=== PATIENT | female | born 1985 | race Caucasian/White ===

== ENCOUNTER → 2023-10-29 | Outpatient (CLI) | payer OTHER ==
[2023-10-29 12:07] LABS: Appearance,Urine Clear (Clear); Color,Urine Yellow
[2023-10-29 12:08] LABS: Bilirubin,Urine Negative (Negative); Blood,Urine Small (Negative); Glucose,Urine (UA) Negative (Negative); Ketones,Urine Negative (Negative); Leukocyte Esterase,Urine Moderate (Negative); Nitrite,Urine Negative (Negative); Protein,Urine Negative (Negative); Urobilinogen,Urine 0.2 mg/dL (<2.0)
[2023-10-29 12:09] LABS: Bacteria,Urine Many /hpf; Mucus,Urine Rare /hpf; RBC,Urine 2 /hpf (0-5); Squamous Epithelial Cell,Urine 7 /hpf (0-4); WBC,Urine 2 /hpf (0-5)
[2023-10-29 15:55] LABS: Basophils # (A) 0.01 X 10*3/uL (0.00-0.10); Basophils % (A) 0.2 %; Eosinophils # (A) 0.02 X 10*3/uL (0.04-0.35); Eosinophils % (A) 0.4 %; HCT 40.4 % (37.2-46.3); HGB 13.1 g/dL (12.0-15.0); Immature Grans, Automated 0 %; Lymphocytes # (A) 1.58 X 10*3/uL (0.90-5.00); Lymphocytes % (A) 29.8 %; MCH 28.6 pg (27.0-32.0); MCHC 32.4 g/dL (32.0-37.0); MCV 88.2 FL (80.0-97.0); Mean Platelet Volume 10.8 FL (9.5-12.2); Monocytes # (A) 0.32 X 10*3/uL (0.20-1.00); NRBC Per 100 WBC 0 X 10*3/uL (0.00-0.01); Neutrophils # (A) 3.37 X 10*3/uL (1.80-7.70); Neutrophils % (A) 63.6 %; Platelet Count 251 X 10*3/uL (140-440); RBC 4.58 X 10*6/uL (4.10-5.20); RDW 13.1 % (11.5-14.5)
[2023-10-29 16:16] LABS: Erythrocyte Sedimentation Rate 16 mm/Hr (0-20)
[2023-10-29 17:37] LABS: DNA Double-Stranded Negative (Negative)
[2023-10-29 18:59] LABS: Creatine Kinase 49 U/L (26-186)
[2023-10-29 19:00] LABS: ALT 15 U/L (8-44); AST 15 U/L (13-35); Albumin 4.2 g/dL (3.8-4.9); Albumin/Globulin Ratio 1.62 Ratio (1.60-3.17); Alkaline Phosphatase 51 U/L (41-126); Blood Urea Nitrogen 18.2 mg/dL (9.0-27.0); Calcium 9.4 mg/dL (8.7-10.3); Carbon Dioxide 19.9 mmol/L (21.6-31.8); Chloride 106 mmol/L (96-109); Chol/HDL Ratio 3.38 Ratio; Globulin 2.6 g/dL (1.6-3.3); Glucose 97 mg/dL (70-110); LDL Cholesterol,Calculated 123.8 mg/dL (0.0-131.0); Magnesium 1.9 mg/dL (1.5-2.4); Potassium 4.3 mmol/L (3.5-5.5); Rheumatoid Factor, Qnt <15 IU/mL (0-15); Sodium 139 mmol/L (135-145); T4, Free (Free Thyroxine) 1.14 ng/dL (0.80-1.80); Total Bilirubin 0.4 mg/dL (0.3-1.2); Total Protein 6.8 g/dL (6.2-8.2); VLDL Calculation 18.44 mg/dL (5.00-40.00)
== END | disposition home or self-care (01) ==
LOC: LABWHC1 09:15
PROVIDERS: ATTEND Family Medicine
DX: M35.3 Polymyalgia rheumatica (principal); N39.0 Urinary tract infection, site not specified; M32.9 Systemic lupus erythematosus, unspecified; E66.01 Morbid (severe) obesity due to excess calories; Z85.850 Personal history of malignant neoplasm of thyroid
CPT/HCPCS: 36415; 80053; 80061; 81001; 82306; 82550; 83036; 83735; 84439; 84443; 84481; 85025; 85652; 86038; 86140; 86160; 86225; 86431; 86800

== ENCOUNTER → 2023-11-13 | Outpatient (CLI) | payer OTHER ==
[2023-11-13 19:01] LABS: BUN/Creat Ratio 20.83 Ratio (12.00-20.00); Blood Urea Nitrogen 12.5 mg/dL (9.0-27.0); Calcium 9.1 mg/dL (8.7-10.3); Carbon Dioxide 22.3 mmol/L (21.6-31.8); Chloride 106 mmol/L (96-109); Glucose 96 mg/dL (70-110); Potassium 4.4 mmol/L (3.5-5.5); Sodium 138 mmol/L (135-145)
== END | disposition home or self-care (01) ==
LOC: LABWHC1 13:26
PROVIDERS: ATTEND Family Medicine
DX: E78.00 Pure hypercholesterolemia, unspecified (principal)
CPT/HCPCS: 36415; 80048

== ENCOUNTER → 2023-12-25 | Outpatient (CLI) | payer OTHER ==
--- NOTE | 2023-12-25 13:03 | US ---
EXAMINATION TYPE: US kidneys/renal and bladder DATE OF EXAM: 12/25/2023 COMPARISON: NONE CLINICAL INDICATION: Female, 38 years old with history of R311 MICRO HEMATURIA; Bilateral flank and p elvic pain EXAM MEASUREMENTS: Right Kidney: 10.8 x 5.4 x 5.5 cm Left Kidney: 11.8 x 4.7 x 4.6 cm Right Kidney: no hydronephrosis or masses seen Left Kidney: no hydronephrosis or masses seen Bladder: wnl Bilateral Jets seen: Yes There is no evidence for hydronephrosis at this point in time. No nephrolithiasis is seen. No rad s are identified. The urinary bladder is anechoic. Bilateral ureteral jets are seen. IMPRESSION: No discrete abnormality seen.
== END | disposition home or self-care (01) ==
LOC: RADUSWWP 12:34
PROVIDERS: ATTEND Urology
DX: R31.1 Benign essential microscopic hematuria (principal); R10.2 Pelvic and perineal pain
CPT/HCPCS: 76770

== ENCOUNTER → 2024-02-08 | Outpatient (CLI) | payer OTHER ==
--- NOTE | 2024-02-08 15:55 | US ---
EXAMINATION TYPE: US thyroid st tissue head/neck DATE OF EXAM: 02/08/2024 COMPARISON: NONE CLINICAL INDICATION: Female, 38 years old with history of C73 MALIGNANT NEOPLASM OF THYROID GLAND; Pete chew states previous hx of thyroid cancer and left lobe removal in 2019. Patient is currently on syn throid. GLAND SIZE: Right Lobe: 5.5 x 1.9 x 2.0 cm Overall Parenchyma: heterogeneous Left Lobe: Surgically absent Isthmus Thickness: Surgically absent NODULES RIGHT: # of nodules measured on right: 0 Bilateral neck scanned, no evidence of lymphadenopathy. IMPRESSION: Heterogeneous thyroid gland correlate with thyroid markers.
== END | disposition home or self-care (01) ==
LOC: RADUSWWP 12:59
PROVIDERS: ATTEND Internal Medicine Endocrinology, Diabetes & Metabolism
DX: E07.89 Other specified disorders of thyroid (principal); C73 Malignant neoplasm of thyroid gland; Z90.89 Acquired absence of other organs
CPT/HCPCS: 76536; 84443

== ENCOUNTER 2024-03-25 10:46 | Emergency (ER) | payer OTHER ==
--- NOTE | 2024-03-25 11:03 | ED ---
Extremity Problem HPI - General Chief complaint: Extremity Problem,Nontraumatic Stated complaint: R leg swelling Time Seen by Provider: 03/25/24 11:00 Source: patient, RN notes reviewed Mode of arrival: ambulatory Limitations: no limitations - History of Present Illness Initial comments: 38-year-old female presented to the ER with chief complaint of right calf pain. Patient states last night she noticed pain in the arch of her right foot. She states this morning when she woke up she noticed the purple discoloration to her distal ankle. She denies any known injuries or traumas. She also states her pant leg was tight compared to the left calf. She also states it felt more tight than before she went to bed. She denies any history of blood clots, blood thinner use, control, smoking. She does states she went on a 4-hour car ride [id number] She denies any current chest pain, shortness of breath, palpitations, dizziness, lightheadedness. - Related Data Allergies Allergy/AdvReac Type Severity Reaction Status Date / Time azithromycin [From Zithromax] Allergy Rash/Hives Verified 03/25/24 10:51 nitrofurantoin Allergy Rash/Hives Verified 03/25/24 10:51 [From Macrobid] Penicillins Allergy Rash/Hives Verified 03/25/24 10:51 Review of Systems ROS Statement: Those systems with pertinent positive or pertinent negative responses have been documented in the HPI. ROS Other: All systems not noted in ROS Statement are negative. Past Medical History Past Medical History: Cancer, Thyroid Disorder History of Any Multi-Drug Resistant Organisms: None Reported Past Surgical History: Cholecystectomy, Orthopedic Surgery Past Psychological History: No Psychological Hx Reported Smoking Status: Never smoker Past Alcohol Use History: None Reported Past Drug Use History: None Reported General Exam Limitations: no limitations General appearance: alert, in no apparent distress Respiratory exam: Present: normal lung sounds bilaterally. Absent: respiratory distress, wheezes, rales, rhonchi, stridor Cardiovascular Exam: Present: regular rate, normal rhythm, normal heart sounds. Absent: systolic murmur, diastolic murmur, rubs, gallop, clicks Extremities exam: Present: calf tenderness (right. Positive Homans' sign. 2+ dorsalis pedis and posterior tibialis pulses. Compared to left calf the right is slightly larger and warm to touch. Purple discoloration to the medial malleolus.) Skin exam: Present: warm, dry, intact, normal color. Absent: rash Course Vital Signs 03/25/24 03/25/24 10:46 12:29 Temperature 98.2 F 98.1 F Pulse Rate 82 79 Respiratory 16 18 Rate Blood Pressure 159/97 145/76 O2 Sat by Pulse 100 100 Oximetry Medical Decision Making - Medical Decision Making Was pt. sent in by a medical professional or institution (, PA, CAP PARTS CUTTER, urgent care, hospital, or retirement...) When possible be specific @ -Patient sent by PCP for evaluation of right lower extremity edema and pain. Did you speak to anyone other than the patient for history (EMS, parent, family, police, friend...)? What history was obtained from this source @ -No Did you review nursing and triage notes (agree or disagree)? Why? @ -I reviewed and agree with nursing and triage notes Were old charts reviewed (outside hosp., previous admission, EMS record, old EKG, old radiological studies, urgent care reports/EKG's, retirement records)? Report findings @ -No old charts were reviewed Differential Diagnosis (chest pain, altered mental status, abdominal pain women, abdominal pain men, vaginal bleeding, weakness, fever, dyspnea, syncope, headache, dizziness, GI bleed, back pain, seizure, CVA, palpatations, mental health, musculoskeletal)? @ -Differential Musculoskeletal: Muscular strain, contusion, ligament sprain, fracture, arthritis, septic arthritis, bursitis, cellulitis, muscle spasm, nerve compression, DVT, arterial occlusion, herpes zoster, electrolyte abnormality, tumor.... This is not meant to be in all inclusive list EKG interpreted by me (3pts min.). @ -None X-rays interpreted by me (1pt min.). @ -None done CT interpreted by me (1pt min.). @ -None done U/S interpreted by me (1pt. min.). @ -Venous doppler ultrasound right lower extremity negative for acute DVT. What testing was considered but not performed or refused? (CT, X-rays, U/S, labs)? Why? @ -None What meds were considered but not given or refused? Why? @ -None Did you discuss the management of the patient with other professionals (professionals i.e. , PA, CAP PARTS CUTTER, lab, RT, psych nurse, social sciences department chair, bounty trapper, teacher, chief wellness officer, supportive employment case manager)? Give summary @ -No Was smoking cessation discussed for >3mins.? @ -No Was critical care preformed (if so, how long)? @ -No Were there social determinants of health that impacted care today? How? (Homelessness, low income, unemployed, alcoholism, drug addiction, transportation, low edu. Level, literacy, decrease access to med. care, shelter, rehab)? @ -No Was there de-escalation of care discussed even if they declined (Discuss DNR or withdrawal of care, Hospice)? DNR status @ -No What co-morbidities impacted this encounter? (DM, HTN, Smoking, COPD, CAD, Cancer, CVA, ARF, Chemo, Hep., AIDS, mental health diagnosis, sleep apnea, morbid obesity)? @ -None Was patient admitted / discharged? Hospital course, mention meds given and route, prescriptions, significant lab abnormalities, going to OR and other pertinent info. @ -Discharge. 38-year-old female presented to the ER with chief complaint of right calf pain and swelling. History and physical exam completed. Vitals st able. Patient no signs of acute distress and nontoxic-appearing. Right lower extremity neurovascular intact. Purple discoloration to medial malleolus on the right. Patient has full active range of motion of RLE. Right calf tenderness. Ultrasound venous Doppler right lower extremity negative for acute DVT. Results discussed with patient, all questions answered. Advised close follow-up with PC P. Return parameters discussed. Patient discharged in stable condition with follow-up to PCP. Patient verbally expressed understanding and agreement with care plan. Case discussed with ED attending, Dr. Boyle. Undiagnosed new problem with uncertain prognosis? @ -No Drug Therapy requiring intensive monitoring for toxicity (Heparin, Nitro, Insulin, Cardizem)? @ -No Were any procedures done? @ -No Diagnosis/symptom? @ -Calf swelling Acute, or Chronic, or Acute on Chronic? @ -acute Uncomplicated (without systemic symptoms) or Complicated (systemic symptoms)? @ -uncomplicated Side effects of treatment? @ -No Exacerbation, Progression, or Severe Exacerbation? @ -No Poses a threat to life or bodily function? How? (Chest pain, [place], [place], pneumonia, PE, COPD, DKA, ARF, appy, cholecystitis, CVA, Diverticulitis, Homicidal, Suicidal, threat to staff... and all critical care pts) @ -No - Radiology Data Radiology results: report reviewed, image reviewed Disposition Clinical Impression: Calf swelling, Varicose vein of leg Disposition: HOME SELF-CARE Condition: Stable Additional Instructions: Please follow-up with PCP. Return to the ER for any new or worsening symptoms. Is patient prescribed a controlled substance at d/c from ED?: No Referrals: Tacho Monroy DO [Primary Care Provider] - 1-2 days Time of Disposition: 12:19
--- NOTE | 2024-03-25 12:08 | US ---
EXAMINATION TYPE: US venous doppler duplex LE RT DATE OF EXAM: 03/25/2024 11:00 AM COMPARISON: NONE CLINICAL INDICATION: Female, 38 years old with history of pain; pain and swelling in right leg, purpl e spots on medial right foot SIDE PERFORMED: Right TECHNIQUE: The lower extremity deep venous system is examined utilizing real time linear array sonog mckinley with graded compression, doppler sonography and color-flow sonography. VESSELS IMAGED: Common Femoral Vein Deep Femoral Vein Greater Saphenous Vein * Femoral Vein Popliteal Vein Small Saphenous Vein * Proximal Calf Veins Posterior tibial veins (* superficial vessels) Right Leg: Negative for DVT Additional scanning with images labeled purple spots on foot. No identifying landmarks are provided. Some heterogeneous possible mixed soft tissue and fluid may be present here. IMPRESSION: 1. No evidence for DVT within the right lower extremity. 2. An image is provided labeled purple spots on foot. No identifying landmarks are provided. Unclear if this represents some type of bruising/soft tissue injury or synovitis.
[2024-03-25 12:56] VITALS: BP 145/76; PULSE 79; RESP 18; TEMP 98.1
== END 2024-03-25 13:08 | disposition home or self-care (01) ==
LOC: EC 10:46
DX: I83.891 Varicose veins of right lower extremity with other complications (principal); Z88.0 Allergy status to penicillin; Z88.1 Allergy status to other antibiotic agents; Z88.8 Allergy status to other drugs, medicaments and biological substances
CPT/HCPCS: 99283

== ENCOUNTER → 2024-04-16 | Outpatient (CLI) | payer OTHER ==
[2024-04-16 19:36] LABS: BUN/Creat Ratio 18.71 Ratio (12.00-20.00); Blood Urea Nitrogen 13.1 mg/dL (9.0-27.0); Calcium 9.2 mg/dL (8.7-10.3); Carbon Dioxide 21.9 mmol/L (21.6-31.8); Chloride 106 mmol/L (96-109); Glucose 105 mg/dL (70-110); Magnesium 2.2 mg/dL (1.5-2.4); Potassium 4.4 mmol/L (3.5-5.5); Sodium 139 mmol/L (135-145)
[2024-04-16 19:50] LABS: Creatine Kinase 2331 U/L (26-186)
== END | disposition home or self-care (01) ==
LOC: LABWHC1 12:13
PROVIDERS: ATTEND Family Medicine
DX: I87.8 Other specified disorders of veins (principal)
CPT/HCPCS: 36415; 80048; 82306; 82550; 83735

== ENCOUNTER → 2024-04-17 | Outpatient (CLI) | payer OTHER ==
[2024-04-17 15:44] LABS: C Reactive Protein 0.6 mg/dL (0.00-0.80); T4, Free (Free Thyroxine) 1.28 ng/dL (0.80-1.80)
[2024-04-17 17:13] LABS: Anti-Smith Ab Interp Negative (Negative); JO-1 IgG Antibody <0.2 AI
== END | disposition home or self-care (01) ==
LOC: LABWHC1 09:04
PROVIDERS: ATTEND Family Medicine
DX: M35.3 Polymyalgia rheumatica (principal); M62.82 Rhabdomyolysis
CPT/HCPCS: 36415; 82550; 82552; 83615; 84439; 84443; 84450; 84460; 84484; 85652; 86038; 86140; 86235

== ENCOUNTER 2024-04-18 16:34 | Emergency (ER) | payer OTHER ==
[2024-04-18 16:45] VITALS: TEMP 98.1
[2024-04-18] MEDS: SODIUM CHLORIDE 0.9% 1,000 ML IV STA (19:22)
--- NOTE | 2024-04-18 19:27 | ED ---
General Adult HPI - General Chief complaint: Recheck/Abnormal Lab/Rx Stated complaint: Abn labs, sent by PCP Time Seen by Provider: 04/18/24 17:39 Source: patient Mode of arrival: ambulatory Limitations: no limitations - History of Present Illness Initial comments: Dictation was produced using [employer] dictation software. please excuse any grammatical, word or spelling errors. Chief Complaint: 38-year-old female with rhabdomyolysis History of Present Illness: Patient 38-year-old female last week she had some muscle cramps while vacationing. She went to the ER there and was discharged. She went to follow-up with her primary care doctor and they ran some test patient was found to have elevated CK of 2300. Patient noticed recently that her urine has become dark. Patient states has been having some muscle cramps. She has past medical history of some autoimmune disorders. Patient does not workout vigorously. The ROS documented in this emergency department record has been reviewed and confirmed by me. Those systems with pertinent positive or negative responses have been documented in the HPI. All other systems are other negative and/or noncontributory. - Related Data Allergies Allergy/AdvReac Type Severity Reaction Status Date / Time azithromycin [From Zithromax] Allergy Rash/Hives Verified 04/18/24 16:38 nitrofurantoin Allergy Rash/Hives Verified 04/18/24 16:38 [From Macrobid] Penicillins Allergy Rash/Hives Verified 04/18/24 16:38 Review of Systems ROS Statement: Those systems with pertinent positive or pertinent negative responses have been documented in the HPI. ROS Other: All systems not noted in ROS Statement are negative. Past Medical History Past Medical History: Cancer, Thyroid Disorder History of Any Multi-Drug Resistant Organisms: None Reported Past Surgical History: Cholecystectomy, Orthopedic Surgery Past Psychological History: No Psychological Hx Reported Smoking Status: Never smoker Past Alcohol Use History: None Reported Past Drug Use History: None Reported General Exam - General Exam Comments Initial Comments: PHYSICAL EXAM: General Impression: Alert and oriented x3, not in acute distress HEENT: Normocephalic atraumatic, extra-ocular movements intact, pupils equal and reactive to light bilaterally, mucous membranes moist. Cardiovascular: Heart regular rate and rhythm Chest: Able to complete full sentences, no retractions, no tachypnea Abdomen: abdomen soft, non-tender, non-distended, no organomegaly Musculoskeletal: Pulses present and equal in all extremities, no peripheral edema Motor: no focal deficits noted Neurological: CN II-XII grossly intact, no focal motor or sensory deficits noted Skin: Intact with no visualized rashes Psych: Normal affect and mood Limitations: no limitations Course Vital Signs 04/18/24 16:36 Temperature 98.1 F Pulse Rate 79 Respiratory 18 Rate Blood Pressure 137/87 O2 Sat by Pulse 99 Oximetry Medical Decision Making - Medical Decision Making Was pt. sent in by a medical professional or institution (BERTA Beck, OFFICE AUTOMATION TECHNICIAN, urgent care, hospital, or alf...) When possible be specific @ -[No] Did you speak to anyone other than the patient for history (EMS, parent, family, police, friend...)? What history was obtained from this source @ -[No] Did you review nursing and triage notes (agree or disagree)? Why? @ -[I reviewed and agree with nursing and triage notes] Were old charts reviewed (outside hosp., previous admission, EMS record, old EKG, old radiological studies, urgent care reports/EKG's, alf records)? Report findings @ -[No old charts were reviewed] Differential Diagnosis (chest pain, altered mental status, abdominal pain women, abdominal pain men, vaginal bleeding, musculoskeletal, weakness, fever, dyspnea, syncope, headache, dizziness, GI bleed, back pain, seizure, CVA, palpatations, mental health)? @ -[not applicable] EKG interpreted by me (3pts min.). @ -[None done] X-rays interpreted by me (1pt min.). @ -[None done] CT interpreted by me (1pt min.). @ -[None done] U/S interpreted by me (1pt. min.). @ -[None done] What testing was considered but not performed or refused? (CT, X-rays, U/S, labs)? Why? @ -[None] What meds were considered but not given or refused? Why? @ -[None] Did you discuss the management of the patient with other professionals (p rofessionals i.e. BERTA Beck, OFFICE AUTOMATION TECHNICIAN, lab, RT, psych nurse, social economist, tap out operator, teacher, commercial escrow officer, correctional counselor/case manager)? Give summary @ -[No] Was smoking cessation discussed for >3mins.? @ -[No] Was critical care preformed (if so, how long)? @ -[No] Were there social determinants of health that impacted care today? How? (Homelessness, low income, unemployed, alcoholism, drug addiction, transportatio n, low edu. Level, literacy, decrease access to med. care, skilled nursing, rehab)? @ -[No] Was there de-escalation of care discussed even if they declined (Discuss DNR or withdrawal of care, Hospice)? DNR status @ -[No] What co-morbidities impacted this encounter? (DM, HTN, Smoking, COPD, CAD, Cancer, CVA, ARF, Chemo, Hep., AIDS, mental health diagnosis, sleep apnea, morbid obesity)? @ -[None] Was patient admitted / discharged? Hospital course, mention meds given and route, prescriptions, significant lab abnormalities, going to OR and other pertinent info. @ -38-year-old female presents emergency department for reevaluation of rhabdomyolysis diagnosed from the primary care physician's office. Laboratory evaluation obtained. Labs are unremarkable. CK is improved from 2300 down to 663. Patient feels better patient able for discharge follow-up with primary care doctor. Undiagnosed new problem with uncertain prognosis? @ -[No] Drug Therapy requiring intensive monitoring for toxicity (Heparin, Nitro, Insulin, Cardizem)? @ -[No] Were any procedures done? @ -[No] Diagnosis/symptom? Acute, or Chronic, or Acute on Chronic? Uncomplicated (without systemic symptoms) or Complicated (systemic symptoms)? @ -Abnormal outpatient lab Side effects of treatment? @ -[No] Exacerbation, Progression, or Severe Exacerbation? @ -[No] Poses a threat to life or bodily function? How? (Chest pain, [place], [place], pneumonia, PE, COPD, DKA, ARF, appy, cholecystitis, CVA, Diverticulitis, Homicidal, Suicidal, threat to staff... and all critical care pts) @ -[No] - Lab Data Result diagrams: 04/18/24 19:20 04/18/24 19:19 Lab Results 04/18/24 04/18/24 04/18/24 Range/Units 19:15 19:19 19:20 WBC 7.0 (3.8-10.6) k/uL RBC 4.63 (3.80-5.40) m/uL Hgb 13.2 (11.4-16.0) gm/dL Hct 41.0 (34.0-46.0) % MCV 88.5 (80.0-100.0) fL MCH 28.6 (25.0-35.0) pg MCHC 32.3 (31.0-37.0) g/dL RDW 13.6 (11.5-15.5) % Plt Count 220 (150-450) k/uL MPV 8.4 Neutrophils % 65 % Lymphocytes % 29 % Monocytes % 4 % Eosinophils % 1 % Basophils % 0 % Neutrophils # 4.5 (1.3-7.7) k/uL Lymphocytes # 2.0 (1.0-4.8) k/uL Monocytes # 0.3 (0-1.0) k/uL Eosinophils # 0.1 (0-0.7) k/uL Basophils # 0.0 (0-0.2) k/uL Sodium 137 (137-145) mmol/L Potassium 4.1 (3.5-5.1) mmol/L Chloride 107 (98-107) mmol/L Carbon Dioxide 21 L (22-30) mmol/L Anion Gap 9 mmol/L BUN 16 (7-17) mg/dL Creatinine 0.65 (0.52-1.04) mg/dL Est GFR (CKD-EPI)AfAm >90 (>60 ml/min/1.73 sqM) Est GFR (CKD-EPI)NonAf >90 (>60 ml/min/1.73 sqM) Glucose 88 (74-99) mg/dL Calcium 9.6 (8.4-10.2) mg/dL Creatine Kinase 663 H (30-135) U/L Urine Color Colorless Urine Appearance Clear (Clear) Urine pH 6.0 (5.0-8.0) Ur Specific [place] 1.006 (1.001-1.035) Urine Protein Negative (Negative) Urine Glucose (UA) Negative (Negative) Urine Ketones Negative (Negative) Urine Blood Small H (Negative) Urine Nitrite Negative (Negative) Urine Bilirubin Negative (Negative) Urine Urobilinogen <2.0 (<2.0) mg/dL Ur Leukocyte Esterase Small H (Negative) Urine RBC 5 (0-5) /hpf Urine WBC 1 (0-5) /hpf Ur Squamous Epith Cells 1 (0-4) /hpf Urine Bacteria Many H (None) /hpf Disposition Clinical Impression: Rhabdomyolysis Disposition: HOME SELF-CARE Condition: Good Instructions (If sedation given, give patient instructions): Rhabdomyolysis (ED) Is patient prescribed a controlled substance at d/c from ED?: No Referrals: Tacho Monroy DO [Primary Care Provider] - 1-2 days Time of Disposition: 19:48
[2024-04-18 19:35] LABS: Appearance,Urine Clear (Clear); Bacteria,Urine Many /hpf; Bilirubin,Urine Negative (Negative); Blood,Urine Small (Negative); Color,Urine Colorless; Glucose,Urine (UA) Negative (Negative); Ketones,Urine Negative (Negative); Leukocyte Esterase,Urine Small (Negative); Nitrite,Urine Negative (Negative); Protein,Urine Negative (Negative); RBC,Urine 5 /hpf (0-5); Specific Gravity,Urine 1.006 (1.001-1.035); Squamous Epithelial Cell,Urine 1 /hpf (0-4); Urobilinogen,Urine <2.0 mg/dL (<2.0); WBC,Urine 1 /hpf (0-5)
[2024-04-18 19:38] LABS: African American GFR (CKD) >90 (>60 ml/min/1.73 sqM); Anion Gap 9 mmol/L; Blood Urea Nitrogen 16 mg/dL (7-17); Calcium 9.6 mg/dL (8.4-10.2); Carbon Dioxide 21 mmol/L (22-30); Chloride 107 mmol/L (98-107); Creatine Kinase 663 U/L (30-135); Glucose 88 mg/dL (74-99); Non-African American GFR(CKD) >90 (>60 ml/min/1.73 sqM); Sodium 137 mmol/L (137-145)
[2024-04-18 19:40] LABS: Basophils % (A) 0 %; Eosinophils # (A) 0.1 k/uL (0-0.7); Eosinophils % (A) 1 %; HGB 13.2 gm/dL (11.4-16.0); Lymphocytes % (A) 29 %; MCH 28.6 pg (25.0-35.0); MCHC 32.3 g/dL (31.0-37.0); MCV 88.5 fL (80.0-100.0); Mean Platelet Volume 8.4; Monocytes # (A) 0.3 k/uL (0-1.0); Monocytes % (A) 4 %; Neutrophils # (A) 4.5 k/uL (1.3-7.7); Neutrophils % (A) 65 %; Platelet Count 220 k/uL (150-450); RBC 4.63 m/uL (3.80-5.40); RDW 13.6 % (11.5-15.5)
[2024-04-18 19:40] LABS: Potassium 4.1 mmol/L (3.5-5.1)
[2024-04-18 20:26] VITALS: BP 148/96; PULSE 73; RESP 16
== END 2024-04-18 20:07 | disposition home or self-care (01) ==
LOC: EC 16:34
DX: M62.82 Rhabdomyolysis (principal); Z88.0 Allergy status to penicillin; Z88.6 Allergy status to analgesic agent; Z88.8 Allergy status to other drugs, medicaments and biological substances; Z88.1 Allergy status to other antibiotic agents
CPT/HCPCS: 36415; 80048; 81001; 82550; 85025; 96360; 99283

== ENCOUNTER → 2024-05-09 | Outpatient (CLI) | payer OTHER | END | disposition home or self-care (01) | LOC: LABWHC1 11:55 | PROVIDERS: ATTEND Family Medicine | DX: M62.82 Rhabdomyolysis (principal) | CPT/HCPCS: 36415; 82550 ==

== ENCOUNTER 2024-07-31 17:47 | Emergency (ER) | payer OTHER ==
[2024-07-31 18:13] VITALS: TEMP 98.3
--- NOTE | 2024-07-31 18:18 | ED ---
General Adult HPI - General Source: patient, RN notes reviewed Mode of arrival: ambulatory Limitations: no limitations <Allyson Mancia - Last Filed: 07/31/24 18:17> <Bridger Garcia - Last Filed: 08/01/24 01:07> - General Chief complaint: Neuro Symptoms/Deficit Stated complaint: Poss Seizure Time Seen by Provider: 07/31/24 18:17 - History of Present Illness Initial comments: Quick note: 38-year-old female with a chief complaint of possible seizure. Patient states last night she started to have a "dj vu feeling". She states this has persisted into today. She is reporting numbness to extremities. Denies any chest pain or shortness of breath. No history of seizures. Patient has a history of partial thyroidectomy. (Allyson Mancia) Dictation was produced using [employer] dictation software. please excuse any grammatical, word or spelling errors. Chief Complaint: 38-year-old female presents to the emergency department for altered mental status History of Present Illness: Patient 38-year-old female multiple comorbidities. States that for the last couple days she has been having strange neurologic sensations. States that she feels like she is having dj vu when she is not. She states that she feels a little numb to the left side of her head. Denies any headache. Denies any numbness tingling paresthesias. No visual changes. Denies any ataxia or difficulty walking. The ROS documented in this emergency department record has been reviewed and confirmed by me. Those systems with pertinent positive or negative responses have been documented in the HPI. All other systems are other negative and/or noncontributory. (Bridger Garcai) - Related Data Allergies Allergy/AdvReac Type Severity Reaction Status Date / Time azithromycin [From Zithromax] Allergy Rash/Hives Verified 04/18/24 16:38 nitrofurantoin Allergy Rash/Hives Verified 04/18/24 16:38 [From Macrobid] Penicillins Allergy Rash/Hives Verified 04/18/24 16:38 Review of Systems ROS Other: All systems not noted in ROS Statement are negative. <Allyson Mancia - Last Filed: 07/31/24 18:17> ROS Other: All systems not noted in ROS Statement are negative. <Bridger Garcia - Last Filed: 08/01/24 01:07> ROS Statement: Those systems with pertinent positive or pertinent negative responses have been documented in the HPI. 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 History of Any Multi-Drug Resistant Organisms: None Reported Past Surgical History: Cholecystectomy, Orthopedic Surgery Additional Past Surgical History / Comment(s): partial thyroidectomy Past Psychological History: No Psychological Hx Reported Smoking Status: Never smoker Past Alcohol Use History: None Reported Past Drug Use History: None Reported <Allyson Mancia - Last Filed: 07/31/24 18:17> General Exam Limitations: no limitations <Allyson Mancia - Last Filed: 07/31/24 18:17> <Bridger Garcia - Last Filed: 08/01/24 01:07> - General Exam Comments Initial Comments: Visual Physical Exam Vital signs reviewed General: Well-appearing, nontoxic, no acute distress. Head: Normocephalic, atraumatic Eyes: PERRLA, EOMI ENT: Airway patent Chest: Nonlabored breathing Skin: No visual rash, normal skin tone Neuro: Alert and oriented 3 Musculoskeletal: No gross abnormalities (Allyson Mancia) PHYSICAL EXAM: General Impression: Alert and oriented x3, not in acute distress HEENT: Normocephalic atraumatic, extra-ocular movements intact, pupils equal and reactive to light bilaterally, mucous membranes moist. Cardiovascular: Heart regular rate and rhythm Chest: Able to complete full sentences, no retractions, no tachypnea Abdomen: abdomen soft, non-tender, non-distended, no organomegaly Musculoskeletal: Pulses present and equal in all extremities, no peripheral edema Motor: no focal deficits noted Neurological: CN II-XII grossly intact, no focal motor or sensory deficits noted Skin: Intact with no visualized rashes Psych: Normal affect and mood (Bridger Garcia) Course Vital Signs 07/31/24 18:09 Temperature 98.3 F Pulse Rate 80 Respiratory 16 Rate Blood Pressure 119/80 O2 Sat by Pulse 98 Oximetry Medical Decision Making <Allyson Mancia - Last Filed: 07/31/24 18:17> - Lab Data Result diagrams: 07/31/24 18:27 07/31/24 18:27 <Perfecto Garciassaleah Gloria - Last Filed: 08/01/24 01:07> - Medical Decision Making I performed the quick note portion of this chart. Electronically signed by Allyson Mancia PA-C (Allyson Mancia) Was pt. sent in by a medical professional or institution (BERTA Beck, [employer], urgent care, hospital, or senior care...) When possible be specific @ -No Did you speak to anyone other than the patient for history (EMS, parent, family, police, friend...)? What history was obtained from this source @ -No Did you review nursing and triage notes (agree or disagree)? Why? @ -I reviewed and agree with nursing and triage notes Were old charts reviewed (outside hosp., previous admission, EMS record, old EKG, old radiological studies, urgent care reports/EKG's, senior care records)? Report findings @ -No old charts were reviewed Differential Diagnosis (chest pain, altered mental status, abdominal pain women, abdominal pain men, vaginal bleeding, musculoskeletal, weakness, fever, dyspnea, syncope, headache, dizziness, GI bleed, back pain, seizure, CVA, palpatations, mental health)? @ -Differential Altered Mental Status: Hypoglycemia, DKA, hypercapnia, ETOH, overdose, CO poisoning, trauma, myxedema coma, HTN encephalopathy, infection, encephalitis, psychosis, intercranial hemorrhage, hepatic encephalopathy, meningitis, CVA, this is not meant to be an all-inclusive list EKG interpreted by me (3pts min.). @ -None done X-rays interpreted by me (1pt min.). @ -None done CT interpreted by me (1pt min.). @ -CT scan the brain shows no acute processes U/S interpreted by me (1pt. min.). @ -None done What testing was considered but not performed or refused? (CT, X-rays, U/S, labs)? Why? @ -None What meds were considered but not given or refused? Why? @ -None Was smoking cessation discussed for >3mins.? @ -No Were there social determinants of health that impacted care today? How? (Homelessness, low income, unemployed, alcoholism, drug addiction, transportation, low edu. Level, literacy, decrease access to med. care, senior care, rehab)? @ -No Was there de-escalation of care discussed even if they declined (Discuss DNR or withdrawal of care, Hospice)? DNR status @ -No What co-morbidities impacted this encounter? (DM, HTN, Smoking, COPD, CAD, Cancer, CVA, ARF, Chemo, Hep., AIDS, mental health diagnosis, sleep apnea, morbid obesity)? @ -None Was patient admitted / discharged? Hospital course, mention meds given and route, prescriptions, significant lab abnormalities, going to OR and other pertinent info. @ -38-year-old female presents the emergency department with very vague nonspecific neurologic type symptoms. Vital signs stable. Physical examination is benign. Patient has no high risk symptoms. Laboratory evaluation is un remarkable. Patient has no neurodeficits. She does follow-up closely with primary care doctor and neurologist. CT brain is negative. Patient vies to follow-up with neurologist. Did you discuss the management of the patient with other professionals (professionals i.e. , PA, SUPER[employer], lab, RT, psych nurse, social media marketing manager, decator operator, teacher, aoc plans intelligence officer, shoe parts caser)? Give summary @ -No Was critical care preformed (if so, how long)? @ -No Undiagnosed new problem with uncertain prognosis? @ -No Drug Therapy requiring intensive monitoring for toxicity (Heparin, Nitro, Insulin, Cardizem)? @ -No Were any procedures done? @ -No Diagnosis/symptom? Acute, or Chronic, or Acute on Chronic? Uncomplicated (without systemic symptoms) or Complicated (systemic symptoms)? @ -Altered mental status Side effects of treatment? @ -No Exacerbation, Progression, or Severe Exacerbation? @ -No Poses a threat to life or bodily function? How? (Chest pain, [place], [place], pneumonia, PE, COPD, DKA, ARF, appy, cholecystitis, CVA, Diverticulitis, Homicidal, Suicidal, threat to staff... and all critical care pts) @ -No (Bridger Garcia) - Lab Data Lab Results 07/31/24 07/31/24 07/31/24 Range/Units 18:27 18:27 18:27 WBC 6.3 (3.8-10.6) k/uL RBC 4.83 (3.80-5.40) m/uL Hgb 14.2 (11.4-16.0) gm/dL Hct 42.0 (34.0-46.0) % MCV 87.0 (80.0-100.0) fL MCH 29.5 (25.0-35.0) pg MCHC 33.8 (31.0-37.0) g/dL RDW 14.0 (11.5-15.5) % Plt Count 239 (150-450) k/uL MPV 8.6 Neutrophils % 69 % Lymphocytes % 25 % Monocytes % 4 % Eosinophils % 1 % Basophils % 0 % Neutrophils # 4.4 (1.3-7.7) k/uL Lymphocytes # 1.6 (1.0-4.8) k/uL Monocytes # 0.2 (0-1.0) k/uL Eosinophils # 0.0 (0-0.7) k/uL Basophils # 0.0 (0-0.2) k/uL Sodium 134 L (137-145) mmol/L Potassium 4.3 (3.5-5.1) mmol/L Chloride 106 (98-107) mmol/L Carbon Dioxide 20 L (22-30) mmol/L Anion Gap 8 mmol/L BUN 11 (7-17) mg/dL Creatinine 0.64 (0.52-1.04) mg/dL Est GFR (CKD-EPI)AfAm >90 (>60 ml/min/1.73 sqM) Est GFR (CKD-EPI)NonAf >90 (>60 ml/min/1.73 sqM) Glucose 89 (74-99) mg/dL Plasma Lactic Acid Eran (0.7-2.0) mmol/L Calcium 9.5 (8.4-10.2) mg/dL Total Bilirubin 0.8 (0.2-1.3) mg/dL AST 23 (14-36) U/L ALT 19 (4-34) U/L Alkaline Phosphatase 51 (38-126) U/L Total Protein 7.1 (6.3-8.2) g/dL Albumin 4.3 (3.5-5.0) g/dL TSH 1.630 (0.465-4.680) mIU/L Urine Color Urine Appearance (Clear) Urine pH (5.0-8.0) Ur Specific [place] (1.001-1.035) Urine Protein (Negative) Urine Glucose (UA) (Negative) Urine Ketones (Negative) Urine Blood (Negative) Urine Nitrite (Negative) Urine Bilirubin (Negative) Urine Urobilinogen (<2.0) mg/dL Ur Leukocyte Esterase (Negative) Urine RBC (0-5) /hpf Urine WBC (0-5) /hpf Ur Squamous Epith Cells (0-4) /hpf Urine Bacteria (None) /hpf Urine Mucus (None) /hpf Urine HCG, Qual Not Detected (Not Detectd) 07/31/24 07/31/24 Range/Units 18:27 18:27 WBC (3.8-10.6) k/uL RBC (3.80-5.40) m/uL Hgb (11.4-16.0) gm/dL Hct (34.0-46.0) % MCV (80.0-100.0) fL MCH (25.0-35.0) pg MCHC (31.0-37.0) g/dL RDW (11.5-15.5) % Plt Count (150-450) k/uL MPV Neutrophils % % Lymphocytes % % Monocytes % % Eosinophils % % Basophils % % Neutrophils # (1.3-7.7) k/uL Lymphocytes # (1.0-4.8) k/uL Monocytes # (0-1.0) k/uL Eosinophils # (0-0.7) k/uL Basophils # (0-0.2) k/uL Sodium (137-145) mmol/L Potassium (3.5-5.1) mmol/L Chloride (98-107) mmol/L Carbon Dioxide (22-30) mmol/L Anion Gap mmol/L BUN (7-17) mg/dL Creatinine (0.52-1.04) mg/dL Est GFR (CKD-EPI)AfAm (>60 ml/min/1.73 sqM) Est GFR (CKD-EPI)NonAf (>60 ml/min/1.73 sqM) Glucose (74-99) mg/dL Plasma Lactic Acid Eran 0.9 (0.7-2.0) mmol/L Calcium (8.4-10.2) mg/dL Total Bilirubin (0.2-1.3) mg/dL AST (14-36) U/L ALT (4-34) U/L Alkaline Phosphatase (38-126) U/L Total Protein (6.3-8.2) g/dL Albumin (3.5-5.0) g/dL TSH (0.465-4.680) mIU/L Urine Color Colorless Urine Appearance Clear (Clear) Urine pH 6.0 (5.0-8.0) Ur Specific [place] 1.008 (1.001-1.035) Urine Protein Negative (Negative) Urine Glucose (UA) Negative (Negative) Urine Ketones 1+ H (Negative) Urine Blood Small H (Negative) Urine Nitrite Negative (Negative) Urine Bilirubin Negative (Negative) Urine Urobilinogen <2.0 (<2.0) mg/dL Ur Leukocyte Esterase Moderate H (Negative) Urine RBC 4 (0-5) /hpf Urine WBC 1 (0-5) /hpf Ur Squamous Epith Cells 2 (0-4) /hpf Urine Bacteria Few H (None) /hpf Urine Mucus Rare H (None) /hpf Urine HCG, Qual (Not Detectd) Disposition <Allyson Mancia - Last Filed: 07/31/24 18:17> Is patient prescribed a controlled substance at d/c from ED?: No Time of Disposition: 21:52 <Bridger Garcia - Last Filed: 08/01/24 01:07> Clinical Impression: AMS (altered mental status) Disposition: HOME SELF-CARE Condition: Fair Referrals: Tacho Monroy DO [Primary Care Provider] - 1-2 days
[2024-07-31 18:53] LABS: Basophils % (A) 0 %; Eosinophils % (A) 1 %; HGB 14.2 gm/dL (11.4-16.0); Lymphocytes # (A) 1.6 k/uL (1.0-4.8); Lymphocytes % (A) 25 %; MCH 29.5 pg (25.0-35.0); MCHC 33.8 g/dL (31.0-37.0); Mean Platelet Volume 8.6; Monocytes # (A) 0.2 k/uL (0-1.0); Monocytes % (A) 4 %; Neutrophils # (A) 4.4 k/uL (1.3-7.7); Neutrophils % (A) 69 %; Platelet Count 239 k/uL (150-450); RBC 4.83 m/uL (3.80-5.40); WBC 6.3 k/uL (3.8-10.6)
[2024-07-31 19:05] LABS: ALT 19 U/L (4-34); AST 23 U/L (14-36); African American GFR (CKD) >90 (>60 ml/min/1.73 sqM); Albumin 4.3 g/dL (3.5-5.0); Alkaline Phosphatase 51 U/L (38-126); Anion Gap 8 mmol/L; Blood Urea Nitrogen 11 mg/dL (7-17); Calcium 9.5 mg/dL (8.4-10.2); Carbon Dioxide 20 mmol/L (22-30); Chloride 106 mmol/L (98-107); Glucose 89 mg/dL (74-99); Non-African American GFR(CKD) >90 (>60 ml/min/1.73 sqM); Potassium 4.3 mmol/L (3.5-5.1); Sodium 134 mmol/L (137-145); Total Bilirubin 0.8 mg/dL (0.2-1.3); Total Protein 7.1 g/dL (6.3-8.2)
[2024-07-31 19:32] LABS: Appearance,Urine Clear (Clear); Bacteria,Urine Few /hpf; Bilirubin,Urine Negative (Negative); Blood,Urine Small (Negative); Color,Urine Colorless; Glucose,Urine (UA) Negative (Negative); Ketones,Urine 1+ (Negative); Leukocyte Esterase,Urine Moderate (Negative); Mucus,Urine Rare /hpf; Nitrite,Urine Negative (Negative); Protein,Urine Negative (Negative); RBC,Urine 4 /hpf (0-5); Specific Gravity,Urine 1.008 (1.001-1.035); Squamous Epithelial Cell,Urine 2 /hpf (0-4); Urobilinogen,Urine <2.0 mg/dL (<2.0); WBC,Urine 1 /hpf (0-5)
--- NOTE | 2024-08-01 01:03 | CT ---
EXAM: CT Head Without Intravenous Contrast CLINICAL HISTORY: CT Reason: ams TECHNIQUE: Axial computed tomography images of the head/brain without intravenous contrast. CTDI is 49.2 mGy and DLP is 1135.4 mGy-cm. This CT exam was performed using one or more of the following dose reduction techniques: automated exposure control, adjustment of the mA and/or kV according to patient size, and/or use of iterative reconstruction technique. COMPARISON: No relevant prior studies available. FINDINGS: Brain: Unremarkable. No hemorrhage. No significant white matter disease. No edema. Ventricles: Unremarkable. No ventriculomegaly. Bones/joints: Unremarkable. No acute fracture. Soft tissues: Unremarkable. Sinuses: Trace amount of chronic appearing mucosal thickening in the inferior aspect of the right maxillary sinus. The remaining paranasal sinuses are unremarkable. Mastoid air cells: Unremarkable as visualized. No mastoid effusion. IMPRESSION: No acute findings in the head/brain.
[2024-08-01 01:29] VITALS: BP 142/94; PULSE 72; RESP 18
== END 2024-08-01 01:29 | disposition home or self-care (01) ==
LOC: EC 17:47
CPT/HCPCS: 36415; 70450; 80053; 81001; 81025; 83605; 84443; 85025; 93005; 99284

== ENCOUNTER 2024-08-31 10:36 | Emergency (ER) | payer OTHER ==
[2024-08-31 10:48] VITALS: TEMP 97.9
[2024-08-31] MEDS: PROPARACAINE 0.5% OPHTH DROPS 15 ML BTL RIGHT EYE STA (11:15)
[2024-08-31] MEDS: FLUORESCEIN STRIPS 1 MG STRIP RIGHT EYE ONE (11:15)
--- NOTE | 2024-08-31 11:32 | ED ---
Eye Problem HPI - General Chief complaint: Eye Problems Stated complaint: R eye flashes of light Time Seen by Provider: 08/31/24 11:05 Source: patient, RN notes reviewed Mode of arrival: ambulatory Limitations: no limitations - History of Present Illness Initial comments: 38-year-old female presenting to the ER with right eye issues. States last night around 9 PM she began to notice flashes of light in the right upper corner of her eye. She went to bed, hoping it would go away, however woke up this morning with worsening intensity of the flashing. States the flashing is constant, however denies any pain or blurriness of the vision. She does follow with a neurologist for migraines however reports migraines are controlled. She was seen in ER last month for a possible seizure episode where she underwent CT of the brain which returned normal. She has never had the symptoms before. Denies contacts or glasses. No other health conditions. - Related Data Allergies Allergy/AdvReac Type Severity Reaction Status Date / Time azithromycin [From Zithromax] Allergy Rash/Hives Verified 04/18/24 16:38 nitrofurantoin Allergy Rash/Hives Verified 04/18/24 16:38 [From Macrobid] Penicillins Allergy Rash/Hives Verified 04/18/24 16:38 Review of Systems ROS Statement: Those systems with pertinent positive or pertinent negative responses have been documented in the HPI. ROS Other: All systems not noted in ROS Statement are negative. 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 Eye pressure 16. Visual acuity right 20/25, left 20/20, bilateral 20/20. Confrontation visual field test normal.). Absent: scleral icterus, conjunctival injection, periorbital swelling ENT exam: Present: normal exam, mucous membranes moist Neck exam: Present: normal inspection. Absent: tenderness, meningismus, lymphadenopathy Respiratory exam: Present: normal lung sounds bilaterally. Absent: respiratory distress, wheezes, rales, rhonchi, stridor Cardiovascular Exam: Present: regular rate, normal rhythm, normal heart sounds. Absent: systolic murmur, diastolic murmur, rubs, gallop, clicks Neurological exam: Present: alert, oriented X3 Psychiatric exam: Present: normal affect, normal mood Skin exam: Present: warm, dry, intact, normal color. Absent: rash Course Vital Signs 08/31/24 08/31/24 08/31/24 10:45 10:48 13:10 Temperature 97.9 F Pulse Rate 68 80 69 Respiratory 18 20 18 Rate Blood Pressure 148/94 180/90 138/95 O2 Sat by Pulse 100 98 100 Oximetry Medical Decision Making - Medical Decision Making Was pt. sent in by a medical professional or institution (, PA, BUILDING OFFICIAL, urgent care, hospital, or detention...) When possible be specific @ -No Did you speak to anyone other than the patient for history (EMS, parent, family, police, friend...)? What history was obtained from this source @ -No Did you review nursing and triage notes (agree or disagree)? Why? @ -I reviewed and agree with nursing and triage notes Were old charts reviewed (outside hosp., previous admission, EMS record, old EKG, old radiological studies, urgent care reports/EKG's, detention records)? Report findings @ -No old charts were reviewed Differential Diagnosis (chest pain, altered mental status, abdominal pain women, abdominal pain men, vaginal bleeding, weakness, fever, dyspnea, syncope, headache, dizziness, GI bleed, back pain, seizure, CVA, palpatations, mental health, musculoskeletal)? @ -Retinal detachment, multiple sclerosis, posterior vitreous detachment, retinal detachment, posterior Vitas, macular degeneration, migraine aura EKG interpreted by me (3pts min.). @ -None X-rays interpreted by me (1pt min.). @ -None done CT interpreted by me (1pt min.). @ -None done U/S interpreted by me (1pt. min.). @ -None done What testing was considered but not performed or refused? (CT, X-rays, U/S, labs)? Why? @ -None What meds were considered but not given or refused? Why? @ -None Did you discuss the management of the patient with other professionals (professionals i.e. , PA, BUILDING OFFICIAL, lab, RT, psych nurse, social media marketer, child development assistant, teacher, international first officer, bottle caser)? Give summary @ -I spoke with Dr. Rodney on-call hotel baggage handler who recommends outpatient follow-up in 1 to 2 days. Was smoking cessation discussed for >3mins.? @ -No Was critical care preformed (if so, how long)? @ -No Were there social determinants of health that impacted care today? How? (Homelessness, low income, unemployed, alcoholism, drug addiction, transportation, low edu. Level, literacy, decrease access to med. care, senior care, rehab)? @ -No Was there de-escalation of care discussed even if they declined (Discuss DNR or withdrawal of care, Hospice)? DNR status @ -No What co-morbidities impacted this encounter? (DM, HTN, Smoking, COPD, CAD, Cancer, CVA, ARF, Chemo, Hep., AIDS, mental health diagnosis, sleep apnea, morbid obesity)? @ -None Was patient admitted / discharged? Hospital course, mention meds given and route, prescriptions, significant lab abnormalities, going to OR and other pertinent info. @ -Discharged. This is a 38-year-old female presenting with right eye flashes of light x 1 day. No other neurological symptoms. Visual acuity 20/25 right side, 20/20 left side. Confrontation visual field test normal. Fluorescein stain negative. IOP 16. I spoke with Dr. Sandoval on-call hotel baggage handler who recommends outpatient follow-up in 1 to 2 days. Patient is agreeable to this plan. Return precautions discussed. Case discussed with my ED attending Dr. Dias. Patient discharged in stable condition. Undiagnosed new problem with uncertain prognosis? @ -No Drug Therapy requiring intensive monitoring for toxicity (Heparin, Nitro, Insulin, Cardizem)? @ -No Were any procedures done? @ -No Diagnosis/symptom? @ -Right eye flashers Acute, or Chronic, or Acute on Chronic? @ -Acute Uncomplicated (without systemic symptoms) or Complicated (systemic symptoms)? @ -Uncomplicated Side effects of treatment? @ -No Exacerbation, Progression, or Severe Exacerbation? @ -No Poses a threat to life or bodily function? How? (Chest pain, [place], [place], pneumonia, PE, COPD, DKA, ARF, appy, cholecystitis, CVA, Diverticulitis, Homicidal, Suicidal, threat to staff... and all critical care pts) @ -Unlikely at this time Disposition Clinical Impression: Right eye symptoms Disposition: HOME SELF-CARE Condition: Stable Additional Instructions: Please follow-up with ophthalmology in 1 to 2 days. Please return to the ER with new or worsening symptoms. Is patient prescribed a controlled substance at d/c from ED?: No Referrals: Tacho Monroy DO [Primary Care Provider] - 1-2 days Time of Disposition: 12:40
[2024-08-31 13:12] VITALS: BP 138/95; PULSE 69; RESP 18
== END 2024-08-31 13:12 | disposition home or self-care (01) ==
LOC: EC 10:36
CPT/HCPCS: 99283

== ENCOUNTER → 2024-09-02 | Outpatient (CLI) | payer OTHER ==
[2024-09-03 02:31] LABS: Basophils # (A) 0.01 X 10*3/uL (0.00-0.10); Basophils % (A) 0.2 %; Eosinophils # (A) 0.07 X 10*3/uL (0.04-0.35); Eosinophils % (A) 1.1 %; HCT 40.2 % (37.2-46.3); Lymphocytes # (A) 1.72 X 10*3/uL (0.90-5.00); Lymphocytes % (A) 28.2 %; MCH 29.1 pg (27.0-32.0); MCHC 32.3 g/dL (32.0-37.0); MCV 90.1 FL (80.0-97.0); Mean Platelet Volume 10.9 FL (9.5-12.2); Monocytes # (A) 0.33 X 10*3/uL (0.20-1.00); Monocytes % (A) 5.4 %; NRBC Per 100 WBC 0 X 10*3/uL (0.00-0.01); Neutrophils # (A) 3.94 X 10*3/uL (1.80-7.70); Neutrophils % (A) 64.8 %; Platelet Count 258 X 10*3/uL (140-440); RBC 4.46 X 10*6/uL (4.10-5.20); RDW 13.3 % (11.5-14.5); WBC 6.09 X 10*3/uL (4.50-10.00)
[2024-09-03 02:49] LABS: Erythrocyte Sedimentation Rate 7 mm/Hr (0-20)
[2024-09-03 03:07] LABS: Rheumatoid Factor, Qnt <15 IU/mL (0-15)
[2024-09-03 03:20] LABS: Hepatitis A Antibody IgM Nonreactive (Nonreactive); Hepatitis B Core IgM Nonreactive (Nonreactive); Hepatitis B Surface Antigen Nonreactive (Nonreactive); Hepatitis C IgG Antibody Nonreactive (Nonreactive)
[2024-09-03 05:02] LABS: Anti-DNA, DS unit <1.0 IU/mL; Anti-Smith Ab Interp Negative (Negative); Cardiolipin Ab IgG Interp Negative (Negative); Cardiolipin Ab IgM Interp Negative (Negative); Cardiolipin IgA Antibody <2.0 U/mL; DNA Double-Stranded Negative (Negative)
[2024-09-03 05:29] LABS: Cyclic Citrull Pep IgG Unit <1.5 U/mL (<=3.9); Cyclic Citrullinated Pep IgG Negative
[2024-09-03 05:44] LABS: Toxoplasma Antibody (IgG) <3.0 IU/mL (<7.2); Toxoplasma Antibody (IgM) <3.0 AU/mL (<8.0)
[2024-09-03 10:24] LABS: HLA B27 NEGATIVE
[2024-09-03 11:04] LABS: Angiotensin-1 Converting Enz. 32 U/L (8-52)
[2024-09-03 11:54] LABS: Smooth Muscle Antibody 14 UNITS (<20)
[2024-09-03 12:05] LABS: HIV-1 RNA Not detected (Not detected); HIV-1 RNA, Quant <20 Copies/mL (<20); LOG HIV Copies/mL <1.30 (<1.30)
[2024-09-04 12:45] LABS: West Nile Virus IgM Antibody 0.01 INDEX (<0.90)
[2024-09-05 13:44] LABS: Bartonella henselae Ab, IgG <1:64; Bartonella henselae Ab, IgM < 1:16
== END | disposition home or self-care (01) ==
LOC: LABWHC1 16:04
PROVIDERS: ATTEND Ophthalmology
DX: H30.14 Acute posterior multifocal placoid pigment epitheliopathy (principal)
CPT/HCPCS: 36415; 80074; 82164; 83516; 85025; 85549; 85652; 86038; 86140; 86147; 86200; 86225; 86235; 86431; 86480; 86611; 86618; 86777; 86778; 86780; 86788; 86789; 86812; 87536

== ENCOUNTER → 2024-11-08 | Outpatient (CLI) | payer BC ==
[2024-11-13 22:36] LABS: Lysozyme, Serum or Body Fluid 4.2 mcg/mL (5.0-11.0)
== END | disposition home or self-care (01) ==
LOC: LABWHC1 10:09
PROVIDERS: ATTEND Ophthalmology
DX: J99 Respiratory disorders in diseases classified elsewhere (principal)
CPT/HCPCS: 36415; 82164; 85549

== ENCOUNTER → 2025-06-02 | Outpatient (CLI) | payer BC ==
[2025-06-02 21:01] LABS: HIV 2 AB Non-Reactive (Non-Reactive); HIV AB P24 Non-Reactive (Non-Reactive); HIV P24 AG Non-Reactive (Non-Reactive)
[2025-06-05 02:18] LABS: Bartonella henselae Ab, IgG <1:64; Bartonella henselae Ab, IgM < 1:16
== END | disposition home or self-care (01) ==
LOC: LABWHC1 10:29
PROVIDERS: ATTEND Ophthalmology
DX: H20.019 Primary iridocyclitis, unspecified eye (principal)
CPT/HCPCS: 36415; 85652; 86140; 86611; 86780; 87390